=== PATIENT | male | born 1970 | race Asian ===

== ENCOUNTER 2025-05-23 20:57 | Emergency (ER) | payer OTHER ==
[~2025-05-23] VITALS: Ht 177.8 cm; Wt 86.2 kg
[2025-05-23 22:57] LABS: APPEARANCE,URINE CLEAR (CLEAR); BLOOD, URINE NEGATIVE Ery/uL (NEGATIVE); LEUKOCYTE ESTERASE ,URINE NEGATIVE (NEGATIVE); NITRITE, URINE NEGATIVE (NEGATIVE); UGLUCOSE NEGATIVE (NEGATIVE)
[2025-05-23 22:57] LABS: PLATELET COUNT (AUTO) 170 K/uL (150-450); RED BLOOD CELL COUNT(AUTO) 5.32 MIL/uL (4.5-6.0); RED CELL DISTRIBUTION WIDTH 13.3 % (11.5-15.0); WHITE BLOOD COUNT (AUTO) 9.3 K/uL (4.3-11.0)
[2025-05-23 23:04] LABS: CALCIUM, SERUM 8.4 mg/dL (8.5-10.1); CREATININE 0.9 mg/dL (0.6-1.3); SODIUM SERUM 138.0 mmol/L (136-145); UREA NITROGEN, BLOOD 23.0 mg/dL (7-18)
[2025-05-23 23:09] LABS: AMPHETAMINE, URINE NEGATIVE (NEGATIVE); BARBITURATE, URINE NEGATIVE (NEGATIVE); BENZODIAZEPINE, URINE NEGATIVE (NEGATIVE); CANNABINOID, URINE NEGATIVE (NEGATIVE); COCCAINE, URINE NEGATIVE (NEGATIVE); OPIATE, URINE NEGATIVE (NEGATIVE)
[2025-05-23 23:17] LABS: ASPARTATE AMINOTRANSFERASE 16.0 U/L (15-37); NT-PRO BNP 24.0 pg/mL (0-125); TOTAL PROTEIN, SERUM 6.9 g/dL (6.4-8.2)
[2025-05-24] MEDS ORDERED: IOHEXOL-350 100 ML VIAL IV ONE (01:39)
[2025-05-24] MEDS ORDERED: IV NS 0.9% 250 ML IV ONE (01:40)
[2025-05-24] MEDS ORDERED: CT SWABBABLE VALVE TRANS SET 1 EA INFUS.SET MC ONE (01:40)
[2025-05-24 03:04] VITALS: BP 114/90; TEMP 98; O2SAT 97
== END 2025-05-24 03:05 | disposition home or self-care (01) ==
LOC: ER 21:04
DX: R07.89 Other chest pain (principal); E78.5 Hyperlipidemia, unspecified; J45.909 Unspecified asthma, uncomplicated; Z88.0 Allergy status to penicillin; Z79.899 Other long term (current) drug therapy
CPT/HCPCS: 99285; 71045; 93005; 85025; 85378; 36415 ×2; 80053; 84484 ×2; 83880; 80307; 81003; 71275; J7050; Q9967

== ENCOUNTER 2025-08-09 14:34 | Emergency (ER) | payer OTHER ==
[~2025-08-09] VITALS: Ht 175.3 cm; Wt 86.2 kg
[2025-08-09] MEDS ORDERED: TDAP [DIPH/PERTUSSIS/TET] 0.5 ML VIAL IM ONE (14:51)
[2025-08-09] MEDS: TDAP [DIPH/PERTUSSIS/TET] 0.5 ML VIAL IM ONE (14:55)
[2025-08-09] MEDS ORDERED: KETOROLAC TROMETHAMINE 15 MG/ML VIAL ONE (14:57)
[2025-08-09] MEDS: KETOROLAC TROMETHAMINE 15 MG/ML VIAL IM ONE (14:58)
[2025-08-09 16:29] VITALS: BP 112/66; TEMP 98.2; O2SAT 98
== END 2025-08-09 16:29 | disposition home or self-care (01) ==
LOC: ER 14:40
DX: S61.214A Laceration without foreign body of right ring finger without damage to nail, initial encounter (principal); J45.909 Unspecified asthma, uncomplicated; I51.9 Heart disease, unspecified; E78.5 Hyperlipidemia, unspecified; Z88.0 Allergy status to penicillin; W23.0XXA Caught, crushed, jammed, or pinched between moving objects, initial encounter; Y93.89 Activity, other specified; Y92.89 Other specified places as the place of occurrence of the external cause; Y99.9 Unspecified external cause status
CPT/HCPCS: 99284; 96372; 90471; 90715; 73130; J1885; A6403